=== PATIENT | female | born 1985 | race Caucasian/White ===

== ENCOUNTER 2017-12-25 19:11 | Emergency (ER) | payer OTHER, SELFPAY ==
[2017-12-25 21:02] LABS: Urine Blood 2+ (NEG); Urine Glucose NEGATIVE (NEG); Urine Protein NEGATIVE (NEG)
--- NOTE | 2017-12-25 21:05 | ER ---
Nurse's Notes [facility] Name: Yvrose Rausch Age: 32 yrs Sex: Female : 1985 Arrival Date: 12/25/2017 Time: 19:16 Bed 13 Private MD: Diagnosis: Complete Miscarriage Presentation: 12/25 19:43 Presenting complaint: Patient states: Cramping and vaginal bleeding for the past 5 aj1 days, reports that she is 8 weeks . She was seen in the ER at [place] on the . Patient states that they did a urinalysis and told her everything was normal, but she has had continued vaginal bleeding and cramping, and today there were some clots. Patient has not followed up with a [employer] following her ER visit. Transition of care: patient was not received from another setting of care. Onset of symptoms was December 21, 2017. Risk Assessment: Do you want to hurt yourself or someone else? Patient reports no desire to harm self or others. Initial Sepsis Screen: Does the patient meet any 2 criteria? No. Patient's initial sepsis screen is negative. Does the patient have a suspected source of infection? No. Patient's initial sepsis screen is negative. Care prior to arrival: None. 19:43 Method Of Arrival: Ambulatory aj1 19:43 Acuity: MARISA 3 aj1 Triage Assessment: 19:46 General: Appears in no apparent distress. comfortable, Behavior is calm, cooperative, aj1 appropriate for age. Pain: Denies pain. Neuro: Level of Consciousness is awake, alert, obeys commands. Cardiovascular: Patient's skin is warm and dry. Respiratory: Airway is patent Respiratory effort is even, unlabored, Respiratory pattern is regular, symmetrical. GI: Reports cramping. : Reports vaginal bleeding that is bright red, with clots, moderate flow. INS[employer]: 19:46 LMP 10/24/2017 aj1 Historical: - Allergies: 19:46 No Known Allergies; aj1 - Home Meds: 19:46 Vitamin Oral [Active]; aj1 - PMHx: 19:46 None; aj1 - PSHx: 19:46 Appendectomy; aj1 - Immunization history:: Flu vaccine is not up to date. - Social history:: Smoking status: Patient uses tobacco products, Patient states that she "vapes". - Ebola Screening: : Patient denies travel to an Ebola-affected area in the 21 days before illness onset. Screenin:10 Abuse screen: Denies threats or abuse. Denies injuries from another. Nutritional ao screening: No deficits noted. Tuberculosis screening: No symptoms or risk factors identified. Fall Risk None identified. Assessment: 20:05 Obstetrical Assessment: General assessment: awake and alert, Fundal height is 0 cms. ao Rupture of membranes noted. Contractions None reported. General: Appears in no apparent distress. comfortable. Pain: Complains of pain in abdomen. Neuro: Level of Consciousness is awake, alert, obeys commands, Oriented to person, place, time, situation, Appropriate for age Moves all extremities. Full function Speech is normal, Facial symmetry appears normal, Pupils are PERRLA. Cardiovascular: Capillary refill < 3 seconds Patient's skin is warm and dry. Respiratory: Airway is patent Respiratory effort is even, unlabored, Respiratory pattern is regular, symmetrical. GI: Abdomen is non-distended. : No signs and/or symptoms were reported regarding the genitourinary system. EENT: No signs and/or symptoms were reported regarding the EENT system. Derm: Skin is intact, Skin is pink, warm \\T\\ dry. normal, Skin temperature is warm. Musculoskeletal: Circulation, motion, and sensation intact. Range of motion: intact in all extremities. 21:28 Reassessment: Patient appears in no apparent distress at this time. Patient and/or ao family updated on plan of care and expected duration. Pain level reassessed. Holding DC until Blood work is return. 21:51 Reassessment: Patient waiting on RhoGAM injections. lab has been call and notified. ao Medications is being prepare at this moment. 23:00 Reassessment: Patient appears in no apparent distress at this time. Patient and/or ao family updated on plan of care and expected duration. Pain level reassessed. DC instructions given to patient. Patient agree with the POC and to follow up with OBG Doctor. Patient received RhoGAM IM Lot # [id number]. Patient to stay for 15 Min to monitored reactions. Vital Signs: 19:46 BP 140 / 89; Pulse 80; Resp 18; Temp 98.0(TE); Pulse Ox 100% on R/A; Weight 77.11 kg aj1 (R); Height 5 ft. 7 in. (170.18 cm) (R); Pain 0/10; 21:28 BP 135 / 82; Pulse 78; Resp 16; Pulse Ox 100% ; Pain 0/10; ao 21:51 BP 119 / 73; Pulse 61; Resp 16; Pulse Ox 97% on R/A; Pain 2/10; ao 22:55 BP 116 / 80; Pulse 78; Resp 16; Pulse Ox 100% ; Pain 0/10; ao 19:46 Body Mass Index 26.63 (77.11 kg, 170.18 cm) aj1 Vitals: 23:00 Heart Tones None. ao ED Course: 19:16 Patient arrived in ED. es 19:46 Triage completed. aj1 19:46 Arm band placed on Patient placed in an exam room. aj1 19:53 Gatito Joshi MD is Attending Physician. ps1 19:59 Urine collected: clean catch specimen, cloudy, UPT positive. ak1 20:05 Sae Nieves, RN is Primary Nurse. ao 20:11 Patient has correct armband on for positive identification. Pulse ox on. NIBP on. ao 21:00 Inserted saline lock: 22 gauge in right antecubital area, using aseptic technique. ao Blood collected. 21:03 TRANSVAG OB In Process Unspecified. EDMS 21:04 Ultrasound completed. Patient tolerated well. Notified ED Physician WITH US sg3 PRELIM . 22:59 No provider procedures requiring assistance completed. IV discontinued, intact, ao bleeding controlled, No redness/swelling at site. Pressure dressing applied. Administered Medications: 22:58 Drug: RhoGAM (Human) 300 mcg Route: IM; Site: right gluteus; ao 23:12 Follow up: Response: No adverse reaction ao Point of Care Testing: Urine : 20:11 hCG Reading: Positive; Control Reading: Positive; ao Outcome: 21:04 Discharge ordered by MD. ps1 22:59 Discharged to home ambulatory. ao 22:59 Condition: stable 23:12 Discharge instructions given to patient, Instructed on discharge instructions, follow ao up and referral plans. Demonstrated understanding of instructions, follow-up care, medications. 23:12 Patient left the ED. ao Signatures: Dispatcher [employer] EDOK Itzel White RN RN aj1 Joanna Arthur Amber, RN RN ak Nieves, SEGUNDO Quevedo RN, Phillip, MD MD ps1 Godinez, Sarah sg3 Corrections: (The following items were deleted from the chart) 19:49 19:43 Presenting complaint: Patient states: Cramping and vaginal bleeding for the past aj1 5 days. She was seen in the ER at [place] on the . Patient states that they did a urinalysis and told her everything was normal, but she has had continued vaginal bleeding and cramping, and today there were some clots. Patient has not followed up with a [employer] following her ER visit. aj1
--- NOTE | 2017-12-25 21:05 | EDPHYS ---
Physician Documentation [facility] Name: Yvrose Rausch Age: 32 yrs Sex: Female : 1985 Arrival Date: 12/25/2017 Time: 19:16 Bed 13 Private MD: ED Physician Gatito Joshi HPI: 12/25 20:17 This 32 yrs old Female presents to ER via Ambulatory with complaints of ps1 Vaginal Bleeding, + Preg <12wks, Abdominal Cramping. 20:17 The patient presents to the emergency department with abdominal pain, vaginal bleeding, ps1 that is moderate, with clots, with tissue. The estimated gestational age is 12 weeks. 20:17 12 ks pt went to [facility] with similar complaints, assured she had normal ps1 . Now has POC brought in bag. Here for verification of AB. Additionally has cramping and VB. . 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 - Social history:: Smoking status: Patient uses tobacco products, Patient states that she "vapes". - Ebola Screening: : Patient denies travel to an Ebola-affected area in the 21 days before illness onset. ROS: 20:17 Constitutional: Negative for fever, chills, and weight loss, Eyes: Negative for injury, ps1 pain, redness, and discharge, Cardiovascular: Negative for chest pain, palpitations, and edema, Respiratory: Negative for shortness of breath, cough, wheezing, and pleuritic chest pain, Abdomen/GI: Negative for abdominal pain, nausea, vomiting, diarrhea, and constipation. 20:17 MS/Extremity: Negative for injury and deformity, Skin: Negative for injury, rash, and discoloration, Neuro: Negative for headache, weakness, numbness, tingling, and seizure. 20:17 : Positive for vaginal bleeding. Exam: 20:17 Constitutional: This is a well developed, well nourished patient who is awake, alert, ps1 and in no acute distress. Head/Face: Normocephalic, atraumatic. Eyes: Pupils equal round and reactive to light, extra-ocular motions intact. Lids and lashes normal. Conjunctiva and sclera are non-icteric and not injected. Chest/axilla: Normal chest wall appearance and motion. Nontender with no deformity. No lesions are appreciated. Cardiovascular: Regular rate and rhythm. No gallops, murmurs, or rubs. Normal PMI, no JVD. No pulse deficits. Respiratory: Lungs have equal breath sounds bilaterally, clear to auscultation and percussion. No rales, rhonchi or wheezes noted. No increased work of breathing, no retractions or nasal flaring. Abdomen/GI: Soft, non-tender, with normal bowel sounds. No distension or tympany. No guarding or rebound. No evidence of tenderness throughout. Neuro: Awake and alert, GCS 15, oriented to person, place, time, and situation. Cranial nerves II-XII grossly intact. Sensory grossly intact. Psych: Awake, alert, with orientation to person, place and time. Behavior, mood, and affect are within normal limits. Vital Signs: 19:46 BP 140 / 89; Pulse 80; Resp 18; Temp 98.0(TE); Pulse Ox 100% on R/A; Weight 77.11 kg aj1 (R); Height 5 ft. 7 in. (170.18 cm) (R); Pain 0/10; 21:28 BP 135 / 82; Pulse 78; Resp 16; Pulse Ox 100% ; Pain 0/10; ao 21:51 BP 119 / 73; Pulse 61; Resp 16; Pulse Ox 97% on R/A; Pain 2/10; ao 22:55 BP 116 / 80; Pulse 78; Resp 16; Pulse Ox 100% ; Pain 0/10; ao 19:46 Body Mass Index 26.63 (77.11 kg, 170.18 cm) aj1 MDM: 20:17 Patient medically screened. ps1 22:09 Data reviewed: vital signs, nurses notes, lab test result(s), and as a result, I will ps1 discharge patient, give rhogam. 12/25 20:16 Order name: Urine Dipstick--Ancillary (enter results); Complete Time: 21:15 rg2 12/25 20:16 Order name: Urine --Ancillary (enter results); Complete Time: 21:15 rg2 12/25 20:20 Order name: Abo/rh Typing; Complete Time: 22:08 ps1 12/25 20:20 Order name: Basic Metabolic Panel; Complete Time: 22:08 ps1 12/25 20:20 Order name: CBC with Diff; Complete Time: 22:08 ps1 12/25 21:35 Order name: Rhogam ao 12/25 21:01 Order name: TRANSVAG OB; Complete Time: 21:15 EDMS 12/25 21:35 Order name: Rh Typing EDMS 12/25 21:35 Order name: Antibody Screen EDMS 12/25 21:35 Order name: Fetalscreen EDMS 12/25 21:35 Order name: Cord Rh type EDMS 12/25 22:11 Order name: ABO/RH no charge; Complete Time: 22:15 EDMS 12/25 20:20 Order name: IV Saline Lock; Complete Time: 21:28 ps1 12/25 20:20 Order name: Labs collected and sent; Complete Time: 21:28 ps1 12/25 20:20 Order name: NPO; Complete Time: 20:34 ps1 12/25 20:20 Order name: Urine Dipstick-Ancillary (obtain specimen); Complete Time: 20:23 ps1 Administered Medications: 22:58 Drug: RhoGAM (Human) 300 mcg Route: IM; Site: right gluteus; ao 23:12 Follow up: Response: No adverse reaction ao Point of Care Testing: Urine : 20:11 hCG Reading: Positive; Control Reading: Positive; ao Disposition: 12/25/17 21:04 Discharged to Home. Impression: Complete Miscarriage. - Condition is Stable. - Discharge Instructions: Miscarriage. - Medication Reconciliation Form, Thank You Letter, Antibiotic Education, Prescription Opioid Use form. - Follow up: Private Physician; When: As needed; Reason: Further diagnostic work-up, Recheck today's complaints, Continuance of care, Re-evaluation by your physician. Follow up: Emergency Department; When: As needed; Reason: Fever > 102 F, Worsening of condition. - Problem is an ongoing problem. - Symptoms are resolved. Signatures: Dispatcher [employer] EDItzel Lomeli RN RN aj1 Sae Nieves RN RN ao Singer, Phillip, MD MD ps1 Corrections: (The following items were deleted from the chart) 21:01 20:20 1st Trimest Single 1st Fetus+US.RAD.BRZ ordered. EDMS EDMS 23:12 21:04 12/25/2017 21:04 Discharged to Home. Impression: Complete Miscarriage. Condition ao is Stable. Forms are Medication Reconciliation Form, Thank You Letter, Antibiotic Education, Prescription Opioid Use. Follow up: Private Physician; When: As needed; Reason: Further diagnostic work-up, Recheck today's complaints, Continuance of care, Re-evaluation by your physician. Follow up: Emergency Department; When: As needed; Reason: Fever > 102 F, Worsening of condition. Problem is an ongoing problem. Symptoms are resolved. ps1
--- NOTE | 2017-12-25 21:12 | RAD REPORT ---
EXAM DESCRIPTION: US - TRANSVAG OB - 12/25/2017 9:02 pm CLINICAL HISTORY: VB and passage of clots ? POC. Vaginal bleeding COMPARISON: None FINDINGS: The uterus measures 8.6 x 5.3 x 4.4 cm. The endometrium measures 16 mm with a minimal amount fluid noted. No retained products suspected. The maternal adnexa and ovaries are within normal limits. Normal Doppler blood flow was demonstrated to both ovaries. IMPRESSION: Minimal endometrial fluid noted, otherwise negative study. If the patient has an elevated HCG level, follow-up serial HCG levels and pelvic sonography in 7 days would be advised.
[2017-12-25 21:34] LABS: Absolute Lymphocytes (CBC) 2.7 K/uL (0.7-4.9); Absolute Monocytes 0.7 K/uL (0.1-1.3); Absolute Neutrophil 4.7 K/uL (1.8-8.0); Basophils % 0.7 % (0-1.3); Hematocrit 42.3 % (36.0-45.0); Lymphocytes % 32.3 % (15.3-44.8); MCH 29.2 pg (27.0-35.0); MCV 87.2 fL (80-100); MPV 8.6 fL (7.6-11.3); Monocytes % 8.4 % (3.3-12.3); RBC Red Blood Cell Count 4.85 M/uL (3.86-4.86)
[2017-12-25 21:49] LABS: BUN Blood Urea Nitrogen 9 mg/dL (7-18); Bicarbonate 25 mmol/L (21-32); Glucose Level 86 mg/dL (74-106); Potassium 3.8 mmol/L (3.5-5.1); Sodium Level 141 mmol/L (136-145)
== END 2017-12-25 23:12 | disposition home or self-care (01) ==
LOC: ER 19:11
DX: O03.9 Complete or unspecified spontaneous abortion without complication (principal); Z72.0 Tobacco use
CPT/HCPCS: 36415; 76813; 80048; 81003; 81025; 85025; 86850; 86900; 86901; 96372; 99284; J2790